=== PATIENT | female | born 1935 | race Caucasian/White ===

== ENCOUNTER 2021-04-06 18:07 | Emergency (ER) | payer MEDICARE, BC, MEDICAID, SELFPAY ==
--- NOTE | ~2021-04-06 | CT_ITS ---
EXAMINATION: CT brain wo con DATE: 04/06/2021 18:45 INDICATION: Head injury. TECHNIQUE: Computed tomography (CT) of the head was performed without intravenous contrast. The mA wa s adjusted according to patient size. Iterative reconstruction technique was employed. The dose-lengt h product was 681.00 mGy-cm. COMPARISON: None FINDINGS: There are scattered areas of low attenuation in the cerebral white matter. There is no intr acranial hemorrhage, acute infarction, or abnormal intracranial mass lesion. The ventricles are fiona l in size. There are likely changes of ocular lens replacement surgeries. There is a right frontal sc alp hematoma. There is mild mucosal thickening in the ethmoid sinuses. The mastoid air cells are norm al. IMPRESSION: 1. Extensive nonspecific cerebral white matter disease, which likely represents chronic small vessel ischemic disease. Reviewed, dictated and finalized at location A.
[2021-04-06 18:07] VITALS: BP 150/98; PULSE 70; RESP 16; TEMP 36.6; O2SAT 96
[2021-04-06 19:00] VITALS: BP 180/75; PULSE 70; RESP 14; O2SAT 94
--- NOTE | 2021-04-06 19:04 | ED.FALL ---
HPI - Fall General Chief Complaint: Fall Stated Complaint: Fall Time Seen by Provider: 04/06/21 18:15 Source: patient Mode of arrival: EMS Limitations: dementia History of Present Illness HPI Narrative: 86-year-old with a history of dementia, Parkinson was brought in from long-term with complaints of fall. Patient rolled out of the bed while [employer] CLERK was trying to transfer the patient. She denies loss of consciousness complains of right frontal swelling and headache. She denies any other injuries or complaints at this time. MD complaint: fall Onset (ago): hour(s) (2) Fall from: out of bed Fall witnessed: yes, by living facility staff Place fall occurred: long-term/[facility]NF Loss of consciousness: none Prolonged down time: no Symptoms prior to fall: none Location of injury: head Related Data Home Medications Medication Instructions Recorded Confirmed carbidopa-levodopa 1 tablet PO BID 04/06/21 carboxymethylcellulose sodium 2 drp EACH EYE BID 04/06/21 [Artificial Tears (cmc)] cholecalciferol (vitamin D3) 50 mcg PO DAILY 04/06/21 [Vitamin D3] docusate sodium 100 mg PO DAILY 04/06/21 donepezil [Aricept] 10 mg PO HS 04/06/21 fexofenadine [Ana Allergy] 180 mg PO DAILY 04/06/21 fluticasone propionate 1 spray INTRANASAL DAILY 04/06/21 hydrocodone-acetaminophen [Heyburn] 1 tablet PO Q6H PRN 04/06/21 linaclotide [Linzess] 145 mcg PO QAM 04/06/21 memantine [Namenda] 5 mg PO QAM 04/06/21 mirabegron [Myrbetriq] mg PO 04/06/21 multivitamin with minerals 1 tablet PO DAILY 04/06/21 [Multiple Vitamin-Minerals] pantoprazole 40 mg PO QAM 04/06/21 polyethylene glycol 3350 [Miralax] 17 g PO DAILY 04/06/21 pregabalin [Lyrica] 50 mg PO BID 04/06/21 sertraline 50 mg PO DAILY 04/06/21 vitamins A,C,T-izvm-[id number] tablet 04/06/21 [PreserVision AREDS] Review of Systems Constitutional: Constitutional: Reports no additional constitutional complaints Eyes: Eyes: Reports no additional eye complaints ENT: Reports system reviewed and no additional complaints, except as documented Cardiovascular: Cardiovascular: Reports no additional cardiovascular complaints Respiratory: Respiratory: Reports no additional respiratory complaints Musculoskeletal: Musculoskeletal: Reports no additional musculoskeletal complaints Neurologic: Reports system reviewed and no additional complaints, except as documented Exam Narrative: GENERAL: Well-appearing, well-nourished, and in no acute distress. HEAD: Normocephalic, . Right frontal hematoma EYES: PERRLA and EOMI. ENT: Pupils reactive NECK: Supple. CHEST: Clear to auscultation. No respiratory distress. HEART: Regular rate and rhythm. No murmur heard. Normal peripheral pulses. ABDOMEN: Soft, nontender, nondistended, normal active bowel sounds. EXTREMITIES: Normal range of motion. No edema. SKIN: Warm, dry, no rash. NEURO: No focal deficits. Alert and oriented x3. PSYCH: Normal mood and affect. Course Course Emergency Course: Patient in no distress at this time daughter is at bedside. Informed her about the CT findings. Patient can be observed at the long-term. Advised ice pack, Tylenol for pain as needed. Vital Signs Vital signs: Vital Signs Temperature 36.6 C 04/06/21 18:07 Pulse Rate 70 04/06/21 18:07 Respiratory Rate 16 04/06/21 18:07 Blood Pressure 150/98 H 04/06/21 18:07 Pulse Oximetry 96 04/06/21 18:07 Temperature 36.6 C 04/06/21 18:07 Pulse Rate 70 04/06/21 18:07 Respiratory Rate 16 04/06/21 18:07 Blood Pressure 150/98 H 04/06/21 18:07 Pulse Oximetry 96 04/06/21 18:07 MDM - Fall Imaging Data Radiologist's impression: ITS Impressions Head CT 04/06/21 18:54 IMPRESSION: 1. Extensive nonspecific cerebral white matter disease, which likely represents chronic small vessel ischemic disease. Discharge Plan Discharge Clinical Impression: Minor head injury Qualifiers: Encounter type: initial encounter Quali
--- NOTE | 2021-04-06 19:41 | PC.NURSE ---
made contact with [facility] and [facility] to transfer pt back to [place] in [place]. both companies declined due to shortage of trucks. [facility] accepted with an eta of [phone] (trip #[id number])
--- NOTE | 2021-04-06 20:45 | PC.NURSE ---
[facility] has arrived and is aware that pt is going to [facility] in [place].
== END 2021-04-06 20:50 ==
PROVIDERS: Emergency Provider Family Medicine
DX: S09.90XA Unspecified injury of head, initial encounter (principal); F03.90 Unspecified dementia, unspecified severity, without behavioral disturbance, psychotic disturbance, mood disturbance, and anxiety; G20 Parkinson's disease; R90.82 White matter disease, unspecified; W06.XXXA Fall from bed, initial encounter
CPT/HCPCS: 70450; 99284